=== PATIENT | male | born 1945 | race Caucasian/White ===

== ENCOUNTER 2022-03-14 19:37 | Emergency (ER) | payer MEDICARE ==
[2022-03-14 21:02] LABS: BASOPHIL 0.3 % (0-2); EOSINOPHIL 1.8 % (0-7); HCT 35.7 % (42.0-52.0); HGB 11.9 g/dl (13.2-18.0); LYMPHOCYTE 4.8 % (15-48); MCH 31.5 pg (25.0-31.0); MCHC 33.3 g/dL (32.0-36.0); MCV 94.4 fL (78.0-100.0); MPV 10.1 fL (6.0-9.5); NEUTROPHIL 74.4 % (41-80); NRBC 0; PLT 203 K/uL (150-400); RBC 3.78 M/uL (4.70-6.00); RDW 14.3 % (11.5-14.0); WBC 7.1 K/uL (4.0-10.5)
[2022-03-14 21:29] LABS: BILIRUBIN - TOTAL 0.5 mg/dL (0.2-1.0)
[2022-03-14 21:30] LABS: ALBUMIN 3.8 g/dL (3.4-5.0); CREATININE 0.76 mg/dL (0.67-1.17)
[2022-03-14 21:31] LABS: GLOBULIN (CALCULATION) 2.7 g/dL; POTASSIUM 4.7 mmol/L (3.5-5.1); TOTAL PROTEIN 6.5 g/dL (6.4-8.2)
[2022-03-14 23:31] LABS: BILIRUBIN NEGATIVE (NEGATIVE); BLOOD NEGATIVE Ery/uL (NEGATIVE); CLARITY CLEAR (CLEAR); COLOR YELLOW (YELLOW); GLUCOSE (U) NORMAL (NORMAL); LEUKOCYTES NEGATIVE Leu/uL (NEGATIVE); NITRITE NEGATIVE (NEGATIVE); PROTEIN NEGATIVE (NEGATIVE); SPECIFIC GRAVITY 1.015 (1.001-1.030)
[2022-03-15] MEDS ORDERED: OXY-IR 5MG5 MG PO (03:04)
== END 2022-03-15 06:37 | disposition home or self-care (01) ==
LOC: FER 19:37
PROVIDERS: Physician Assistant
DX: S22.32XA Fracture of one rib, left side, initial encounter for closed fracture (principal); I25.2 Old myocardial infarction; I10 Essential (primary) hypertension; G20 Parkinson's disease; Z79.899 Other long term (current) drug therapy; Z87.891 Personal history of nicotine dependence; W19.XXXA Unspecified fall, initial encounter
CPT/HCPCS: 36415; 71101; 71275; 80053; 81003; 83880; 84484; 85025; 85379; 94010; J1170; J2270; J7030; Q9967